=== PATIENT | female | born 1970 | race Caucasian/White ===

== ENCOUNTER 2017-05-31 08:27 | Observation (INO) | payer MEDICAID ==
[2017-05-31] VITALS (22 sets, daily range): BP systolic 107–150; BP diastolic 62–84; PULSE 76–96; RESP 9–22; Ht 149.9 cm; Wt 49.5 kg
[~2017-05-31] VITALS: Ht 149.9 cm; Wt 49.5 kg
[~2017-05-31 08:27] MED LIST: EPHEDrine SULFATE 50 MG/5 ML SYG ONE; PROPOFOL 200 MG INJ ONE
[2017-05-31] MEDS ORDERED: CEFAZOLIN 2 GM/50 ML (PMX) 50 ML IVPB ONE (08:30)
[2017-05-31] MEDS ORDERED: SOD CHLORIDE 0.9% 1,000 ML IV ONE (08:30)
[2017-05-31 10:01] LABS: BASOPHILS % 0.7 % (0.0-2.0); EOSINOPHILS # 0.1 10^3/ul (0.0-0.5); EOSINOPHILS % 1.5 % (0.0-7.0); HEMATOCRIT 33.6 % (37.0-47.0); HEMOGLOBIN 10.9 g/dl (12.0-16.0); LYMPHOCYTES # 1.3 10^3/ul (0.8-2.9); LYMPHOCYTES % 32.6 % (15.0-51.0); MEAN CORPUSCULAR HGB CONC 32.4 g/dl (32.0-37.0); MEAN CORPUSCULAR VOLUME 92.6 fl (82.0-101.0); MEAN PLATELET VOLUME 8.4 fl (7.4-10.4); MONOCYTE # 0.4 10^3/ul (0.3-0.9); MONOCYTES % 9.6 % (0.0-11.0); NEUTROPHIL # 2.3 10^3/ul (1.6-7.5); NEUTROPHILS % 55.4 % (39.0-77.0); PLATELET COUNT 228 10^3/UL (140-415); RED BLOOD COUNT 3.63 10^6/ul (4.20-5.40); RED CELL DISTRIBUTION WIDTH 17.4 % (11.5-14.5); WHITE BLOOD COUNT 4.1 10^3/ul (4.8-10.8)
[2017-05-31 10:24] LABS: PROTIME 13.2 Sec (12.2-14.2)
[2017-05-31 10:25] LABS: PARTIAL THROMBOPLASTIN TIME 34.4 Sec (25.0-35.0)
[2017-05-31] MEDS ORDERED: LIDOCAINE 100 MG SYRINGE ONE (10:31)
[2017-05-31] MEDS ORDERED: CEFAZOLIN 1 GM INJ ONE (10:31)
[2017-05-31] MEDS ORDERED: MIDAZOLAM 1 MG/ML 2 ML INJ ONE (10:31)
[2017-05-31] MEDS ORDERED: ACETAMINOPHEN 1000MG/100ML IV 100 ML ONE (10:31)
[2017-05-31] MEDS ORDERED: FENTAnyl 50 MCG/ML VIAL ONE (10:31)
[2017-05-31 10:49] LABS: ALBUMIN 3.6 g/dl (3.3-4.9); ALBUMIN/GLOBULIN RATIO 1.2; BILIRUBIN,INDIRECT 0.1 mg/dl (0-1.1); BILIRUBIN,TOTAL 0.1 mg/dl (0.2-1.3); CALCIUM 8.6 mg/dl (8.4-10.2); CREATININE 0.56 mg/dl (0.44-1.00); POTASSIUM 3.6 mmol/L (3.5-5.1); TOTAL PROTEIN 6.6 g/dl (6.1-8.1)
[2017-05-31] MEDS ORDERED: METOCLOPRAMIDE 10 MG INJ ONE (11:03)
[2017-05-31] MEDS ORDERED: ONDANSETRON 4 MG INJ ONE (11:03)
[2017-05-31] MEDS ORDERED: FAMOTIDINE 20 MG INJ ONE (11:03)
[2017-05-31] MEDS ORDERED: DEXAMETHASONE 4 MG/ML 1 ML INJ ONE (11:03)
[2017-05-31] MEDS ORDERED: HYDROmorphONE 2 MG/ML SYG ONE (11:32)
[2017-05-31] MEDS ORDERED: HYDROmorphONE (0.2 MG/ML) 10ML SYG IV PRN ×3 (12:00)
[2017-05-31] MEDS ORDERED: MEPERIDINE 25 MG INJ IV PRN (12:00)
[2017-05-31] MEDS ORDERED: ONDANSETRON 4 MG INJ IV PRN ×2 (12:00→12:30)
[2017-05-31] MEDS ORDERED: METOCLOPRAMIDE 10 MG INJ IV PRN (12:00)
[2017-05-31] MEDS: D5W-0.45 NACL + KCL 20 MEQ 1,000 ML IV SCH ×2 (12:08→20:08)
--- NOTE | 2017-05-31 12:13 | OPR ---
Date/Time of Note Date/Time of Note DATE: 05/31/17 TIME: 12:11 Operative Report Preoperative Diagnosis Invasive cancer right breast Postoperative Diagnosis Same Operation/Procedure Performed Right modified radical mastectomy Surgeon: MANOLO SEXTON MD Co-Surgeon: JARED COLEMAN MD Anesthesia: general Estimated Blood Loss: 100 - 150 ml's MANOLO SEXTON MD May 31, 2017 12:13
[2017-05-31] MEDS ORDERED: morphine 2 MG INJ IV PRN (12:30)
[2017-05-31] MEDS ORDERED: ACETAMINOPHEN 1000MG/100ML IV 100 ML IVPB PRN (12:30)
--- NOTE | 2017-05-31 14:14 | OPR ---
DATE OF OPERATION: 05/31/2017 PREOPERATIVE DIAGNOSIS: Invasive cancer right breast. POSTOPERATIVE DIAGNOSIS: Invasive cancer right breast. PROCEDURE: Right modified radical mastectomy. ANESTHESIA: General. ANESTHESIOLOGIST: Nurse dining car steward, Dr. Caballero. SURGEON: Dr. Silva. ASSISTANT PROFESSOR OF RELIGION: Dr. Reynaga. INDICATIONS FOR PROCEDURE: Patient is a 46-year-old female, who presented with the palpable subareolar mass approximately 2-3 cm in diameter. Core biopsy revealed invasive cancer it was HER2 positive, thus she was sent for neoadjuvant chemotherapy including Herceptin and Perjeta. However, after 4th cycle she did not have a significant response. I discussed the case with her medical oncologist, Dr. Ulloa and we decided it would be more prudent to proceed with surgery. The patient consented and was scheduled for right modified radical mastectomy. OPERATIVE PROCEDURE: The patient was brought to the operating theater, placed under general anesthesia. The right breast and axillary region was prepped and draped in usual sterile fashion. Planned elliptical incision was demarcated with marking pen around the nipple areolar complex including portions of the skin overlying the breast both medially and laterally. The incision was carried out with 15 blade scalpel. Subcutaneous tissue was dissected with cautery. Skin edges were elevated with skin hooks. Using cautery, skin flaps were created first superiorly to the clavicle then medially to the sternal border, inferiorly to the inframammary fold, and laterally until the latissimus dorsi muscle was identified throughout its course. Mastectomy then took place from medial to lateral using cautery at the border of the pectoralis major muscle. Pectoralis minor muscle was incised. The clavicle was identified. The clavipectoral fascia was incised allowing access into the axilla with blunt dissection along the chest wall. The long thoracic nerve was identified and kept out of harm's way. There were significant lymph nodes which appeared to have metastatic disease in them. More superiorly the axillary vein was identified, dissected from medial to lateral. The thoracodorsal neurovascular bundle was identified and kept out of harm's way. Level 1 and level 2 node- bearing tissue was meticulously dissected using the ligature device. Final connective tissue attachments to the latissimus dorsi muscle were then transected with cautery. Specimen was removed, oriented, and sent for permanent pathologic analysis. Some additional pathologic appearing level 2 nodes were identified. They were dissected separately and sent for pathologic analysis. The wound was irrigated. Minimal bleeding was controlled with cautery. Two number 10 flat Josse-Chen drains were then brought through the left mid axillary line, 1 was cut to size and laid within the axilla and the other was cut to size and laid over the pectorals major muscle. Both drains were secured in place with 2-0 nylon sutures in standard fashion. The skin incision was reapproximated with skin walter. Patient tolerated procedure well. ESTIMATED BLOOD LOSS: 100 cc. COMPLICATIONS: There were no complications. The patient was transported in stable condition to recovery room, where a circumferential compression dressing was applied. Dictated By: Larry Silva MD /yoko/durga /Document#: [id number]
--- NOTE | 2017-05-31 15:14 | HP ---
Date/Time of Note Date/Time of Note DATE: 05/31/17 TIME: 15:13 Assessment/Plan VTE Prophylaxis VTE Prophylaxis Intervention: other Lines/Catheters IV Catheter Type (from Nrsg): Peripheral IV Assessment/Plan Chief Complaint/Hosp Course 1) breast cancer - s/p mastectomy Problems: HPI/ROS Admit Date/Time Admit Date/Time Patient with breast cancer is here for mastectomy. Patient tolerated the procedure and is now having postoperative care PMH/Family/Social Past Medical History Medical History: no pertinent history Past Surgical History hysterectomy Social History Alcohol Use: none Smoking Status: Never smoker Exam/Review of Systems Vital Signs Vitals Vital Signs Date Time Temp Pulse Resp B/P Pulse Ox O2 Delivery O2 Flow Rate FiO2 05/31/17 14:15 90 18 132/69 99 Nasal Cannula 2.0 05/31/17 14:00 98.0 Exam Constitutional: well developed Head: atraumatic, normocephalic Neck: supple Respiratory: clear to auscultation Cardiovascular: regular rate and rhythm Gastrointestinal: non-tender, soft Labs Result Diagram: 05/31/17 0937 05/31/17 0937 Medications Medications Current Medications Sodium Chloride (NS) 1,000 ml @ 75 mls/hr [id number] ONCE IV ; Start 05/31/17 at 08:30; Stop 05/31/17 at 21:49 Ondansetron HCl 4 mg 4 mg Q6H PRN IV NAUSEA AND/OR VOMITING; Start 05/31/17 at 12:30 Potassium Chloride/Dextrose/ Sod Cl 1,000 ml @ 125 mls/hr Q8H IV Last administered on 05/31/17 12:08; Admin Dose 125 MLS/HR; Start 05/31/17 at 12:08 Acetaminophen (Ofirmev 1000mg/ 100ml Iv) 100 ml @ 400 mls/hr Q6H PRN IVPB PAIN Last administered on 05/31/17 14:15; Admin Dose 400 MLS/HR; Start at 12:30 Morphine Sulfate (morphine) 2 mg Q1H PRN IV PAIN; Start 05/31/17 at 14:30 EMMANUEL PAULINO May 31, 2017 15:14
[2017-05-31] MEDS: morphine 4 MG/ML VIAL IV PRN (21:49)
[2017-06-01 00:01] VITALS: BP 112/65; RESP 16
[2017-06-01] MEDS: D5W-0.45 NACL + KCL 20 MEQ 1,000 ML IV SCH ×3 (02:08→20:08)
[2017-06-01 09:00] VITALS: BP 113/63; RESP 16
[2017-06-01] MEDS: morphine 4 MG/ML VIAL IV PRN ×2 (10:01→15:59)
--- NOTE | 2017-06-01 12:45 | PN ---
Date/Time of Note Date/Time of Note DATE: 06/01/17 TIME: 12:44 Assessment/Plan VTE Prophylaxis VTE Prophylaxis Intervention: other Lines/Catheters IV Catheter Type (from Nrsg): Peripheral IV Assessment/Plan Chief Complaint/Hosp Course 1) breast cancer - s/p mastectomy Problems: Subjective 24 Hr Interval Summary Free Text/Dictation Patient feels better Exam/Review of Systems Vital Signs Vitals Vital Signs Date Time Temp Pulse Resp B/P Pulse Ox O2 Delivery O2 Flow Rate FiO2 06/01/17 09:00 98.5 76 16 113/63 99 05/31/17 15:44 Room Air 05/31/17 14:15 2.0 Intake and Output 05/31/17 05/31/17 06/01/17 15:00 23:00 07:00 Intake Total 1400 ml 825 ml 1470 ml Output Total 95 ml 575 ml 12 ml Balance 1305 ml 250 ml 1458 ml Exam Constitutional: well developed Head: atraumatic, normocephalic Neck: supple Respiratory: clear to auscultation Cardiovascular: regular rate and rhythm Gastrointestinal: non-tender, soft Results Result Diagram: 05/31/1793605/31/17936 Medications Medications Current Medications Ondansetron HCl 4 mg 4 mg Q6H PRN IV NAUSEA AND/OR VOMITING; Start 05/31/17 at 12:30 Potassium Chloride/Dextrose/ Sod Cl 1,000 ml @ 125 mls/hr Q8H IV Last administered on 06/01/17 02:08; Admin Dose 125 MLS/HR; Start 05/31/17 at 12:08 Acetaminophen (Ofirmev 1000mg/ 100ml Iv) 100 ml @ 400 mls/hr Q6H PRN IVPB PAIN Last administered on 05/31/17 14:15; Admin Dose 400 MLS/HR; Start at 12:30 Morphine Sulfate (morphine) 2 mg Q1H PRN IV PAIN Last administered on 06/01/17 10:01; Admin Dose 2 MG; Start 05/31/17 at 14:30 EMMANUEL PAULINO Jun 01, 2017 12:45
[2017-06-01 14:37] VITALS: BP 106/56; RESP 19
--- NOTE | 2017-06-01 15:18 | PN ---
Date/Time of Note Date/Time of Note DATE: 06/01/17 TIME: 15:12 Assessment/Plan VTE Prophylaxis VTE Prophylaxis Intervention: ambulation Lines/Catheters IV Catheter Type (from Nrsg): Peripheral IV Assessment/Plan Assessment/Plan 46-year-old female status post right modified radical mastectomy with axillary dissection for cancer of the right breast. Patient is complaining of too much pain. Also the drainage from both Josse- Chen is Semi-bloody color. Plan: Considering too much pain and the fact that the drainage is bloody we will keep the patient overnight and hopefully will discharge the patient tomorrow. Subjective 24 Hr Interval Summary Free Text/Dictation Complains of pain. Has been out of bed walk around. No nausea no vomiting Exam/Review of Systems Vital Signs Vitals Vital Signs Date Time Temp Pulse Resp B/P Pulse Ox O2 Delivery O2 Flow Rate FiO2 06/01/17 14:37 98.0 95 19 106/56 98 05/31/17 15:44 Room Air 05/31/17 14:15 2.0 Intake and Output 05/31/17 05/31/17 06/01/17 15:00 23:00 07:00 Intake Total 1400 ml 825 ml 1470 ml Output Total 95 ml 575 ml 12 ml Balance 1305 ml 250 ml 1458 ml Exam Postop day #1. Status post right modified radical mastectomy with axillary dissection. There are 2 Josse-Chen drains. 1 of them drained 135 cc last night. Today since 6 AM the other one drains 45 cc. It is semi-bloody drainage. The other 1 drained 10 cc since 6 AM. The coronary semi-bloody. Dressing is intact. Patient can move right arm and right wrist and fingers. Results Result Diagram: 05/31/17 0937 05/31/17 0937 Medications Medications Current Medications Ondansetron HCl 4 mg 4 mg Q6H PRN IV NAUSEA AND/OR VOMITING; Start 05/31/17 at 12:30 Potassium Chloride/Dextrose/ Sod Cl 1,000 ml @ 125 mls/hr Q8H IV Last administered on 06/01/17t 02:08; Admin Dose 125 MLS/HR; Start 05/31/17 at 12:08 Acetaminophen (Ofirmev 1000mg/ 100ml Iv) 100 ml @ 400 mls/hr Q6H PRN IVPB PAIN Last administered on 05/31/17 14:15; Admin Dose 400 MLS/HR; Start at 12:30 Morphine Sulfate (morphine) 2 mg Q1H PRN IV PAIN Last administered on 06/01/17 10:01; Admin Dose 2 MG; Start 05/31/17 at 14:30 JARED COLEMAN MD Jun 01, 2017 15:18
[2017-06-01 20:14] VITALS: BP 102/60; RESP 20
[2017-06-01] MEDS: HYDROCODONE/APAP (5/325) TAB PO PRN (21:04)
[2017-06-02 02:22] VITALS: BP 107/64; RESP 20
[2017-06-02] MEDS: D5W-0.45 NACL + KCL 20 MEQ 1,000 ML IV SCH (04:08)
[2017-06-02 05:34] VITALS: BP 109/62; PULSE 68; RESP 17
[2017-06-02] MEDS: HYDROCODONE/APAP (5/325) TAB PO PRN (05:43)
[2017-06-02 07:00] VITALS: BP 101/59; RESP 18
--- NOTE | 2017-06-02 10:07 | DS ---
Date/Time of Note Date/Time of Note DATE: 06/02/17 TIME: 10:06 Discharge Summary Admission/Discharge Info Admit Date/Time May 31, 2017 at 13:00 Discharge Date/Time 06/02/17 Discharge Diagnosis breast cancer Consults surgery Procedures mastectomy Hospital Course Stephanie with breast cancer comes in for mastectomy. Patient tolerated the procedure fine and is discharged when deemed stable 1) breast cancer - s/p mastectomy Primary Care Provider Not On Staff Doctor EMMANUEL PAULINO Jun 02, 2017 10:07
[2017-06-02] MEDS: morphine 4 MG/ML VIAL IV PRN (10:26)
== END 2017-06-02 12:01 | disposition home or self-care (01) ==
LOC: SDS 08:27 → MS1 12:57 → SDS 13:00 → MS1 13:00 → SDS 06-02 00:14 → MS1 06-02 00:14
PROVIDERS: ADMIT Surgery Surgical Oncology; ATTEND Surgery Surgical Oncology
DX: C50.011 Malignant neoplasm of nipple and areola, right female breast (principal); Z17.0 Estrogen receptor positive status [ER+]; Z92.21 Personal history of antineoplastic chemotherapy
CPT/HCPCS: 19307; 80053; 84703; 85025; 85610; 85730; 88307; J0131; J0690; J1100; J1170; J2001; J2250; J2270; J2405; J2765; J3010; J3480; Z7500; Z7512; Z7610; G0378

== ENCOUNTER → 2017-08-02 | Outpatient (CLI) | payer MEDICAID ==
--- NOTE | 2017-08-02 12:48 | RADRPT ---
Echocardiogram Report Patient Name: SIRI MARCUM Gender: Female Date: 1970 Study Date: 02-Aug-2017 Event Manager: Clovis Rivera RDCS Location: EKG Ref. Physician: LORENZO KEMP Quality: Good Procedures: Transthoracic echocardiogram with complete 2D, M-Mode, and doppler examination. Indications: Breast Cancer. 2D/M Mode Doppler Measurement Value Normal Ranges Measurement Value Normal Ranges LVIDd 2D 3.9 3.5 - 5.6 cm AV Peak Slava 1.1 m/sec LVIDs 2D 2.4 2.1 - 4.1 cm AV Peak PG 4.7 mmHg LVPWd 2D 0.8 0.6 - 1.1 cm LVOT Peak Slava 0.9 m/sec IVSd 2D 0.9 0.6 - 1.1 cm LVOT Peak PG 3.2 mmHg AoR Diam 2D 2.8 2.0 - 3.7 cm MV E Peak Slava 0.8 m/sec EDV 2D 66.5 cm3 MV A Peak Slava 0.9 m/sec ESV 2D 13.8 cm3 MV E/A 1.0 LA Dimen 2D 2.1 2.3 - 4.0 cm MV Decel Time 144 msec MV Decel Avery 6 MV E/A 1.0 Findings Left Ventricle: Normal left ventricular systolic function. Normal left ventricular cavity size. Normal left ventricular wall thickness. Ejection fraction is visually estimated at 55 %. Tissue Doppler/Mitral Doppler indices are consistent with impaired relaxation (Stage I diastolic dysfunction). Right Ventricle: Normal right ventricular size. Normal right ventricular systolic function. Left Atrium: The left atrium is normal in size. Right Atrium: The right atrium is normal in size. Mitral Valve: Normal appearance and function of the mitral valve with trace physiologic regurgitation. Aortic Valve: Normal appearance of the aortic valve. No significant aortic stenosis or insufficiency. Tricuspid Valve: Normal appearance of the tricuspid valve. Unable to obtain RVSP due to minimal presence of tricuspid regurgitation. Pulmonic Valve: Normal pulmonic valve appearance. Pericardium: Normal pericardium with no significant pericardial effusion. Aorta: Normal aortic root. IVC: Normal size and normal respiratory collapse consistent with normal right atrial pressure. Conclusions 1.Normal left ventricular systolic function. Normal left ventricular cavity size. Normal left ventricular wall thickness. Ejection fraction is visually estimated at 55 %. Tissue Doppler/Mitral Doppler indices are consistent with impaired relaxation (Stage I diastolic dysfunction). 2.Normal appearance and function of the mitral valve with trace physiologic regurgitation. 3.Normal appearance of the tricuspid valve. Unable to obtain RVSP due to minimal presence of tricuspid regurgitation. Electronically Signed By: Edy Tao 02-Aug-2017 12:47:28 -0700 Patient Name: SIRI MARCUM Study Date: 02-Aug-2017 [id number]
== END | disposition home or self-care (01) ==
LOC: EKG 09:29
PROVIDERS: ATTEND Internal Medicine Hematology & Oncology
DX: C50.919 Malignant neoplasm of unspecified site of unspecified female breast (principal)
CPT/HCPCS: 93306